=== PATIENT | male | born 1995 | race Caucasian/White ===

== ENCOUNTER 2016-07-07 20:45 | Emergency (ER) | payer BC, OTHER ==
[~2016-07-07] VITALS: Ht 167.6 cm; Wt 77.1 kg
[2016-07-07] MEDS ORDERED: RT-ALBUINH (20:59)
[2016-07-07] MEDS ORDERED: ALBU2.5V4 (20:59)
--- NOTE | 2016-07-07 21:40 | ED Cough/URI ---
General Chief Complaint: Respiratory Problems Stated Complaint: ASTHMA/COUGH/SOB Nursing Triage Note: C/O COUGH/SOA X1 DAY. HX ASTHMA Source: patient Exam Limitations: no limitations History of Present Illness Time seen by provider: 21:39 Initial Comments To ER with a one-day history of cough and wheezing. Patient is short of breath. History of asthma and does have a nebulizer at home. He has taken a couple of breathing treatments today at home which helped only briefly. No fevers. Cough is productive minimally. Timing/Duration: yesterday Severity/Quality: moderate, productive cough Associated Symptoms: cough Allergies and Home Medications Allergies Coded Allergies: codeine (Verified Allergy, Unknown, 07/07/16) Home Medications Albuterol Sulfate 1 Puff Puff, #9 (Reported) Albuterol Sulfate 2.5 Mg/3 Ml Vial.neb, #75 (Reported) Constitutional: see HPI EENTM: see HPI Respiratory: see HPI, cough, wheezing Cardiovascular: no symptoms reported Genitourinary: no symptoms reported Musculoskeletal: no symptoms reported Skin: no symptoms reported Psychiatric/Neurological: No Symptoms Reported Hematologic/Lymphatic: No Symptoms Reported Past Qlewjrv-Fwhgsw-Lddsod Hx Patient Social History Alcohol Use: Denies Use Recreational Drug Use: No Smoking Status: Never a Smoker 2nd Hand Smoke Exposure: No Recent Foreign Travel: No Contact w/Someone Who Travel: No Recent Infectious Disease Expo: No Recent Hopitalizations: No Immunizations Up To Date Tetanus Booster (TDap): Less than 5yrs PED Vaccines UTD: Yes Seasonal Allergies Seasonal Allergies: Yes Surgeries HX Surgeries: No Respiratory Hx Respiratory Disorders: Yes Respiratory Disorders: Asthma Cardiovascular Hx Cardiac Disorders: No Neurological Hx Neurological Disorders: No Genitourinary Hx Genitourinary Disorders: No Gastrointestinal Hx Gastrointestinal Disorders: No Musculoskeletal Hx Musculoskeletal Disorders: No Endocrine Hx Endocrine Disorders: No HEENT HX ENT Disorders: No Cancer Hx Cancer: No Psychosocial Hx Psychiatric Problems: No Integumentary HX Skin/Integumentary Disorder: No Blood Transfusions Hx Blood Disorders: No Physical Exam Vital Signs Vital Sign - Last 12Hours 07/07/16 20:59 Temp 100.0 Pulse 115 Resp 18 B/P (MAP) 132/108 Pulse Ox 95 O2 Delivery Room Air Capillary Refill : Less Than 3 Seconds General Appearance: WD/WN, no apparent distress Eyes: Bilateral Eye EOMI, Bilateral Eye Normal Inspection, Bilateral Eye PERRL HEENT: PERRL/EOMI, normal ENT inspection Neck: non-tender, full range of motion Respiratory: no respiratory distress, no accessory muscle use, decreased breath sounds Gastrointestinal: normal bowel sounds, non tender, soft Extremities: normal range of motion, non-tender (he needs a DuoNeb) Neurologic/Psychiatric: alert, normal mood/affect, oriented x 3 Skin: normal color, warm/dry Progress/Results/Core Measures Results/Orders My Orders Orders - MANUEL ISRAEL APRN Chest Pa/Lat (2 View) (07/07/16 21:23) Prednisone Tablet (Deltasone Tablet) (07/07/16 21:45) Albuterol/Ipra Inhalation Soln (Duoneb I (07/07/16 21:45) Svn Sm Volume Nebulizer Rt-Rfs (07/07/16 21:37) Medications Given in ED Current Medications Medications Dose Ordered Sig/Usama Route Start Time Stop Time Status Last Admin Dose Admin Albuterol/ Ipratropium 3 ml ONCE ONCE INH 07/07/16 21:45 07/07/16 21:46 DC 07/07/16 21:44 3 ML Prednisone 60 mg ONCE ONCE PO 07/07/16 21:45 07/07/16 21:46 DC 07/07/16 21:45 60 MG Vital Signs/I&O Vital Sign - Last 12Hours 07/07/16 07/07/16 20:59 21:44 Temp 100.0 Pulse 115 Resp 18 B/P (MAP) 132/108 Pulse Ox 95 95 O2 Delivery Room Air Blood Pressure Mean: 116 Departure Impression Impression: Primary Impression: Asthma exacerbation Disposition: 01 HOME, SELF-CARE Condition: Stable Departure-Patient Inst. Decision time for Depature: 21:48 Referrals: LORRAINE CRAIG MD (PCP) Primary Care Physician Patient Instructions: Asthma, Adult (DC) Add. Discharge Instructions: 1. Steroids as directed 2. Use your nebulized breathing treatment every 4 hours for the next 12-24 hours. You may use an additional treatment every 2 hours on an as-needed basis 3. If the steroids cause insomnia you may use Benadryl to help sleep 4. Follow-up with your doctor later this week 5. Return to ER for any worsening 6. Fill the antibiotics if no improvement in 2 days. All discharge instructions reviewed with patient and/or family. Voiced understanding. Scripts Prednisone (Prednisone) 10 Mg Tab.ds.pk 40 MG PO DAILY, #3 PKG Prov: MANUEL ISRAEL APRN 07/07/16 Azithromycin (Azithromycin) 250 Mg Tablet 250 MG PO UD, #6 TAB TAKE 2 TABLETS ON DAY ONE THEN TAKE 1 TABLET DAILY FOR FOUR MORE DAYS Prov: MANUEL ISRAEL APRN 07/07/16 Copy Copies To 1: LORRAINE CRAIG MD, PETER J APRN Jul 07, 2016 21:40
[2016-07-07] MEDS ORDERED: RT-ALBUTEROL/IPRATROPIUM 3 ML (DUONEB) VIAL INH ONE (21:45)
[2016-07-07] MEDS ORDERED: predniSONE 20 MG TAB PO ONE (21:45)
--- NOTE | 2016-07-07 21:48 | Diagnostic Imaging Report ---
INDICATION: Asthma and shortness of breath PA and lateral chest obtained at 9:54 hours p.m. Heart and mediastinal silhouette are normal in appearance. The lungs are clear. There is no pneumothorax or pleural fluid. IMPRESSION: Negative chest. Dictated by: Dictated on workstation # [id number]
[2016-07-07] MEDS ORDERED: AZIT250T5 PO (21:50)
[2016-07-07] MEDS ORDERED: PRED10TA22 PO (21:50)
[2016-07-07 22:02] VITALS: BP 148/103
== END 2016-07-07 22:02 | disposition home or self-care (01) ==
LOC: EDUNIT# 20:45 → ER 20:49
DX: J45.901 Unspecified asthma with (acute) exacerbation (principal)
CPT/HCPCS: 71020; 94640; 99282

== ENCOUNTER → 2016-12-08 | Outpatient (CLI) | payer BC ==
[~2016-12-08] MED LIST: ALBU2.5V4; AZIT250T5 PO; PRED10TA22 PO; RT-ALBUINH
--- NOTE | 2016-12-08 12:00 | Diagnostic Imaging Report ---
EXAMINATION: Three views of the left ankle. INDICATION: Left ankle fracture. COMPARISON: No prior studies are available for comparison. FINDINGS: There is internal fixation plate and screws seen through the distal fibula with one screw extending across the distal tibiofibular joint into the medial aspect of the distal tibia. There are comminuted fragments from the fracture noted along the posterior aspect of the fibula based on the lateral projection with minimal displacement. These are not well evaluated on the AP or oblique projections. The ankle mortise is normal in configuration. There is suggestion of a fracture also involving the posterior malleolus based on the lateral projection. Correlate with initial radiographs. Artifacts from overlying splint are present. IMPRESSION: Internal fixation hardware to the distal fibula is seen. There are minimally displaced bone fragments along the distal fibula posteriorly only seen on the lateral projection and suggestion of a posterior malleolar fracture. Correlate with preoperative radiographs. Dictated by: Dictated on workstation # [id number]
== END ==
LOC: RAD 11:09
PROVIDERS: ATTEND Orthopaedic Surgery
DX: S82.62XA Displaced fracture of lateral malleolus of left fibula, initial encounter for closed fracture (principal); X58.XXXA Exposure to other specified factors, initial encounter; Y99.8 Other external cause status
CPT/HCPCS: 73610